=== PATIENT | male | born 1955 ===

== ENCOUNTER → 2024-09-23 11:32 | Outpatient (REF) | payer OTHER, SELFPAY | LOC: HWRAD 11:32 | PROVIDERS: ATTENDING PHYSICIAN Orthopaedic Surgery Hand Surgery; FAMILY PHYSICIAN Internal Medicine | DX: S46.012D Strain of muscle(s) and tendon(s) of the rotator cuff of left shoulder, subsequent encounter (principal) | CPT/HCPCS: 73200 ==

== ENCOUNTER 2024-10-20 06:19 | Day surgery (SDC) | payer OTHER, SELFPAY ==
[2024-09-28 10:50] LABS: Hemoglobin 17.3 g/dL (13.0-18.0); Mean Corp Hgb Conc. 34.6 g/dL (33.0-37.0); Mean Corpuscular Hgb 29.2 pg (27.0-31.0); Mean Corpuscular Volume 84.3 fL (80.0-94.0); Platelet Count 213 10^3/uL (130-400); Red Blood Cell Count 5.93 10^6/uL (4.70-6.10); White Blood Cell Count 6.2 10^3/uL (4.8-10.8)
[2024-09-28 11:16] LABS: ALT (SGPT) 25 U/L (0-50); AST (SGOT) 23 U/L (17-59); Albumin 3.9 g/dl (3.5-5.0); Alkaline Phosphatase 70 U/L (38-126); Blood Urea Nitrogen 15 mg/dl (9-20); Calcium 9.7 mg/dl (8.4-10.2); Carbon Dioxide 28 mmol/L (22-30); Chloride 106 mmol/L (98-107); Glucose 106 mg/dl (70-99); Sodium 143 mmol/L (135-145); Total Bilirubin 1.3 mg/dl (0.2-1.3); Total Protein 6.9 g/dl (6.3-8.2); eGFR > 60.00
[2024-09-28 11:58] LABS: Glycohemoglobin (HgbA1c) 5.9 % (4.0-5.6)
[2024-09-28 13:41] VITALS: BMI 38.2
--- NOTE | 2024-09-29 12:48 | CM ---
CM spoke with patient via phone. CM confirmed that patient will have PT via [facility] in [place]. CM stated that patient will need to make an appointment. CM provided patient with CM contact information.
[2024-09-30 11:56] VITALS: BMI 38.2
[2024-10-20] VITALS (8 sets, daily range): BP systolic 117–169; BP diastolic 58–113
[2024-10-20 09:36] LABS: Glucose - Point of Care 111 mg/dl (70-99)
[2024-10-20] MEDS: TYLENOL 1000 MG PO (09:38)
[2024-10-20] MEDS: CELEBREX 200 MG PO (09:38)
[2024-10-20] MEDS: NORMOSOL-R/PLASMALYTE-A 1000 IV (09:38)
--- NOTE | 2024-10-20 09:44 | W.DS.TRANS ---
DC Summary - [employer]
-
Discharge Instructions:
Discharge Diagnosis/Procedures L Reverse TSA 10/20/24-SDS
Diet As tolerated
Activity No strenuous activity
Additional Activity Adequate hydration, minimize Oxy and wear TEDs
stockings to prevent low blood pressure/
dizziness
Driving Restrictions No driving
Instructions:
Stand-Alone Forms: SDS Total Shoulder D/C Inst.
Changes to Home Medications: Yes
Discharge Medications:
DC Medications w/original date entered in [employer]
cholecalciferol (vitamin D3) 25 mcg (1,000 unit) chewable tablet (Vitamin D3) 50 mcg PO DAILY 09/27/24
empagliflozin 10 mg tablet (Jardiance) 10 mg PO DAILY 09/27/24
furosemide 40 mg tablet (Lasix) 40 mg PO DAILY 09/27/24
isosorbide mononitrate 30 mg tablet,extended release 24 hr 30 mg PO DAILY 09/27/24
metoprolol succinate 25 mg tablet,extended release 24 hr 25 mg PO BID 09/27/24
omega [id number]-fish oil 1,200 mg (144 mg-216 mg) capsule (Fish Oil) 1 cap PO DAILY 09/27/24
pantoprazole 40 mg tablet,delayed release 40 mg PO BID 09/27/24
rosuvastatin 10 mg tablet 10 mg PO DAILY 09/27/24
mupirocin 2 % topical ointment 1 applic topical BID infection prevention #1 tube 09/28/24
dexamethasone 4 mg tablet 4 mg PO BID inflammation #6 tabs 09/29/24
doxycycline hyclate 100 mg capsule 100 mg PO BID infection prevention #10 caps 09/29/24
gabapentin 300 mg capsule 300 mg PO HS sleep/pain #10 caps 09/29/24
ondansetron 4 mg disintegrating tablet 4 mg PO Q6H PRN n/v #20 tabs 09/29/24
oxycodone 5 mg tablet 5 mg PO Q6H PRN 1 tab moderate pain, 2 tabs severe pain #30 tabs 09/29/24
Saccharomyces boulardii 250 mg capsule (Florastor) 250 mg PO BID #1 cap 10/20/24
docusate sodium 100 mg capsule (Colace) 100 mg PO BID stool softner #1 cap 10/20/24
enalapril maleate 20 mg tablet 20 mg PO BID #0 tabs 10/20/24
magnesium hydroxide 400 mg/5 mL oral suspension (Milk of Magnesia) 30 ml PO HS PRN constipation #1 mL 10/20/24
rivaroxaban 20 mg tablet (Xarelto) 10 mg (1/2 x 20 mg) PO DAILY #0 tabs 10/20/24
sennosides 8.6 mg tablet (Senokot) 17.2 mg (2 x 8.6 mg) PO BID laxative #2 tabs 10/20/24
Home Medication Changes
mupirocin 2 % topical ointment 1 applic topical BID infection prevention #1 tube 09/28/24
dexamethasone 4 mg tablet 4 mg PO BID inflammation #6 tabs 09/29/24
doxycycline hyclate 100 mg capsule 100 mg PO BID infection prevention #10 caps 09/29/24
gabapentin 300 mg capsule 300 mg PO HS sleep/pain #10 caps 09/29/24
ondansetron 4 mg disintegrating tablet 4 mg PO Q6H PRN n/v #20 tabs 09/29/24
oxycodone 5 mg tablet 5 mg PO Q6H PRN 1 tab moderate pain, 2 tabs severe pain #30 tabs 09/29/24
Saccharomyces boulardii 250 mg capsule (Florastor) 250 mg PO BID #1 cap 10/20/24
docusate sodium 100 mg capsule (Colace) 100 mg PO BID stool softner #1 cap 10/20/24
enalapril maleate 20 mg tablet 20 mg PO BID #0 tabs 10/20/24
magnesium hydroxide 400 mg/5 mL oral suspension (Milk of Magnesia) 30 ml PO HS PRN constipation #1 mL 10/20/24
rivaroxaban 20 mg tablet (Xarelto) 10 mg (1/2 x 20 mg) PO DAILY #0 tabs 10/20/24
sennosides 8.6 mg tablet (Senokot) 17.2 mg (2 x 8.6 mg) PO BID laxative #2 tabs 10/20/24
Pending Results: No
[2024-10-20] MEDS: CLEOCIN 50 IV (10:27)
== END 2024-10-20 14:40 | disposition home or self-care (01) ==
LOC: SDS 06:19
PROVIDERS: ATTENDING PHYSICIAN Orthopaedic Surgery Hand Surgery; FAMILY PHYSICIAN Internal Medicine; OTHER PHYSICIAN Internal Medicine Cardiovascular Disease; OTHER PHYSICIAN Physician Assistant Medical
DX: S46.012A Strain of muscle(s) and tendon(s) of the rotator cuff of left shoulder, initial encounter (principal); S42.122A Displaced fracture of acromial process, left shoulder, initial encounter for closed fracture; X58.XXXA Exposure to other specified factors, initial encounter; M19.011 Primary osteoarthritis, right shoulder
CPT/HCPCS: 23472; 23585; C1713; C1776; 36415; 73000; 73020; 76000; 80053; 82962; 83036; 85027; 87070